=== PATIENT | male | born 1935 | race Caucasian/White ===

== ENCOUNTER 2017-01-09 11:43 | Emergency (ER) | payer MEDICARE, OTHER ==
[~2017-01-09] VITALS: Ht 182.9 cm; Wt 117.0 kg
[2017-01-09 11:46] VITALS: BP 162/83; PULSE 81; RESP 15; TEMP 97.5; O2SAT 96
[2017-01-09] MEDS ORDERED: ASPI1TAB69 PO (12:07)
[2017-01-09] MEDS ORDERED: ACET-703 PO (12:07)
[2017-01-09] MEDS ORDERED: PLAQ200T PO (12:07)
[2017-01-09] MEDS ORDERED: SIMV20TA PO (12:07)
[2017-01-09] MEDS ORDERED: PRED5TAB PO (12:07)
[2017-01-09] MEDS ORDERED: GABA300C5 PO (12:07)
[2017-01-09] MEDS ORDERED: TAMS0.4C4 PO (12:07)
[2017-01-09] MEDS ORDERED: VITA10002 PO (12:07)
--- NOTE | 2017-01-09 12:13 | PD ---
HPI Chief Complaint: Injury Time Seen by Provider: 12:09 Travel History International Travel<30 days: No Contact w/Intl Traveler<30days: No Traveled to known affect area: No History of Present Illness HPI Patient comes in complaining of right knee pain ongoing for 6 months. Patient states pain got worse today when he stumbled. Patient denies any direct trauma. Patient states that he has been taking Tylenol as well as using a topical NSAID, however after stumbling today the pain got worse. Pain is sharp stabbing like in nature over the lateral aspect of his right knee is worse with flexion of his right knee. Patient states typically walking around helps limber his knee. Denies any new numbness or tingling states he has neuropathy. PFSH Past Medical History High Cholesterol: Yes Hypertension: Yes ?: Not Social History Tobacco Use: No Substance Use: No Allergies-Medications (Allergen,Severity, Reaction): Coded Allergies: Nonsteroidal Anti-Inflammatory Agts (Verified Allergy, Severe, KIDNEY FAILURE, 01/09/17) Reported Meds & Prescriptions Reported Meds & Active Scripts Active Tylenol-Codeine #3 (Acetaminophen-Codeine) 300-30 mg Tab 1 Tab PO Q8HR PRN Reported Tylenol Extra Strength (Acetaminophen) 500 Mg Tab 1,000 Mg PO Q6H PRN Vitamin B-12 (Cyanocobalamin) 1,000 Mcg Tab 1,000 Mcg PO DAILY Gabapentin 300 Mg Cap 300 Mg PO HS Tamsulosin (Tamsulosin HCl) 0.4 Mg Cap 0.4 Mg PO HS Aspirin 81 Mg Tabdr 81 Mg PO DAILY Plaquenil (Hydroxychloroquine Sulfate) 200 Mg Tab 200 Mg PO DAILY Take with food Simvastatin 20 Mg Tab 20 Mg PO DAILY Prednisone 5 Mg Tab 5 Mg PO DAILY Review of Systems Except as stated in HPI: all other systems reviewed are Neg Physical Exam Narrative GENERAL: Well-developed, overly nourished, in no acute distress, and non-ill appearing. SKIN: Focused skin assessment warm and dry. HEAD: Atraumatic. Normocephalic. EYES: Pupils equal and round. EOMI. No scleral icterus. No injection or drainage. ENT: No nasal bleeding or discharge. Mucous membranes pink and moist. NECK: Trachea midline. Supple. No nuclear rigidity. CARDIOVASCULAR: Dorsal pulses 2+ contact, and equal bilaterally. Capillary refill less than 2 seconds. RESPIRATORY: No accessory muscle use. No respiratory distress. MUSCULOSKELETAL: No obvious deformities. No clubbing. No cyanosis. No edema. Decreased range of motion right knee secondary to pain. Knee: Negative patellar apprehension, varus and valgus maneuvers, anterior draw test, and Gino test. Pulses equal BL distal to injury. Capillary refill less than 2 seconds distal to injury and equal BL. FROM distal to injury and equal BL. Strength distal to injury equal BL. NV intact distal to injury. Dorsal pulses equal BL. Sensation equal BL 1st web space. NEUROLOGICAL: Awake and alert. No obvious cranial nerve deficits. Motor grossly within normal limits. Normal speech. PSYCHIATRIC: Appropriate mood and affect; insight and judgment normal. Data Data Last Documented VS Vital Signs Date Time Temp Pulse Resp B/P Pulse Ox O2 Delivery O2 Flow Rate FiO2 01/09/17 13:34 18 01/09/17 11:46 97.5 81 162/83 96 Orders Knee, Complete (4vws) (01/09/17 ) Ice/Cold Pack (01/09/17 12:14) Acetamin-Codeine 300-30 Mg (Tylenol-Code (01/09/17 12:15) Splint Or Brace Apply/Monitor (01/09/17 13:58) [facility] Medical Decision Making Medical Screen Exam Complete: Yes Emergency Medical Condition: Yes Differential Diagnosis Fracture, sprain, contusion, other Narrative Course There is no clinical evidence for fracture. There is no clinical evidence to suspect bony injury by exam. Radiographic examination revealed no fracture seen at this time. X-ray shows a suspected minimal effusion. No obvious ligamental injury or internal derangement is noted at this time. The distal extremity appears neurovascularly intact, without evidence of neurovascular injury nor compartment syndrome. Tendon exam also was intact. The effected limb was splinted. The patient was discharged on pain medication and given warnings for vascular compromise. The patient is to follow up with primary care provider and Orthopedics. The patient agrees with plan. Patient in no obvious distress upon re-evaluation. All pertinent Radiology result(s) discussed with patient. Patient was asked if they wanted to speak to my attending, which the patient did not wish to do at this time. Discussed patient with Dr. Abdi prior to discharge, who is in agreement with plan of care and disposition. Any questions/concerns in reference to patient diagnosis/ condition discussed and clarified prior to patient's discharge. Reinforced sheer importance of close follow up with patient's primary physician or primary care clinic and/or orthopedics. Instructed patient to return to ED immediately, if symptoms return/worsen. Pt showed understanding of above instructions. Further instructions and recommendations were detailed in discharge paperwork. Pt ambulated without difficulty out of ED at discharge with his cane. Diagnosis Primary Impression: Knee pain Qualified Code: M25.561 - Right knee pain, unspecified chronicity Referrals: Shoaib Cloud MD Orthopedist Primary Care Physician Patient Instructions: General Instructions, Knee Pain (ED), Splint Care (DC) Additional Instructions: Follow-up with your primary care physician and/or orthopedic in 2-3 days for reevaluation. Take all medication as prescribed. Do not take [id number] Tylenol if taking medication prescribed today. Apply ice to affected area as needed for pain. Wear Bassam wrap as needed for comfort. Return to the emergency department if symptoms get worse. Med/Other Pt SpecificInfo: Prescription(s) given Scripts Acetaminophen-Codeine (Tylenol-Codeine #3)300-30 mg Tab1 Tab PO Q8HR PRN (PAIN GREATER THAN 7) #7 TAB Ref 0 Prov:Rohini Abdi DO 01/09/17 Disposition: 01 DISCHARGE HOME Condition: Stable Christopher Dejesus Jan 09, 2017 12:13
[2017-01-09] MEDS ORDERED: ACETAMINOPHEN/CODEINE 300 MG/30 MG TAB PO ONE (12:15)
[2017-01-09 13:34] VITALS: RESP 18
[2017-01-09] MEDS ORDERED: TYLETAB34 PO (13:34)
--- NOTE | 2017-01-09 13:55 | RADHPO ---
EXAM DATE/TIME: 01/09/2017 12:26 [facility] COMPARISON: No previous studies available for comparison. INDICATIONS : Twisted right knee today, has pain MEDICAL HISTORY : None. SURGICAL HISTORY : None. ENCOUNTER: Initial ACUITY: 1 day PAIN SCORE: 10/10 LOCATION: Right knee FINDINGS: Four view examination of the right knee demonstrates no evidence of fracture or dislocation. There is a minimal effusion. Bony mineralization is normal. The articular surfaces are intact. Vascular calc ification are present. CONCLUSION: Suspected minimal effusion. Brandon Lara MD on January 09, 2017 at 13:51 Board Certified Radiologist. This report was verified electronically.
== END 2017-01-09 14:07 | disposition home or self-care (01) ==
LOC: PHEFT 11:43
DX: M25.561 Pain in right knee (principal); W18.40XA Slipping, tripping and stumbling without falling, unspecified, initial encounter; E78.00 Pure hypercholesterolemia, unspecified; I10 Essential (primary) hypertension; Y93.9 Activity, unspecified; Y92.9 Unspecified place or not applicable; Y99.9 Unspecified external cause status
CPT/HCPCS: 73564; 99283